=== PATIENT | male | born 1950 | race Caucasian/White ===

== ENCOUNTER 2016-04-17 12:48 | Inpatient (IN) ==
[2016-04-17] MEDS ORDERED: Ondansetron 4 MG/2 ML VIAL IVP PRN (15:39)
[2016-04-17] MEDS ORDERED: *HR* Morphine 2 MG/ML SYRINGE IVP PRN (15:39)
[2016-04-17] MEDS ORDERED: Naloxone 0.4 MG/ML INJ IVP PRN (15:39)
[2016-04-17] MEDS ORDERED: Acetaminophen 325 MG TABLET PO PRN (15:39)
[2016-04-17] MEDS ORDERED: *HR* HYDROcodone/Acet 5/325 mg TABLET PO PRN (15:39)
[2016-04-17] MEDS ORDERED: *HR* Heparin 5,000 UNIT/ML VIAL IVP ONE (15:43)
[2016-04-17] MEDS ORDERED: *HR* Heparin 5,000 UNIT/ML VIAL IVP PRN ×2 (15:43)
[2016-04-17] MEDS ORDERED: Heparin 25,000 UNIT/500 ML D5W 25,000 UNIT/500 ML MLS IVC SCH (15:45)
[2016-04-17] MEDS ORDERED: Dextrose Gel 15 GM PO PRN ×2 (15:46)
[2016-04-17] MEDS ORDERED: *HR* Dextrose 50 % in Water (Syg) 50 ML SYRINGE IVP PRN (15:46)
[2016-04-17] MEDS ORDERED: D5% in Water 1,000 ML IV PRN (15:46)
[2016-04-17] MEDS ORDERED: Nitroglycerin 0.4 MG TAB.SUBL SL SCH (15:47)
--- NOTE | 2016-04-17 16:01 | Internal Med History&Physical ---
Date of Encounter: 04/17/16 Time of Encounter: 15:54 Assessment and Plan (1) NSTEMI (non-ST elevated myocardial infarction) Current visit: Yes Status: Acute Patient with history of ACS (Patient is not sure if STEMI or NSTEMI) on April 04/2017, was at [facility], refused heart catheterization and intervention at that time. Patient now with pulmonary edema and cardiogenic shock possibly from inferior lateral WA. Received Lovenox 90 mg at referring hospital, will start on heparin drip. Sublingual nitroglycerin when necessary chest pain. Continuous ASA, Currently chest pain free, SL NTG prn chest pain Hold beta blockers and ACEI till BP improved Continue dopamine infusion. Titrate to systolic blood pressure systolic is 110. Obtain echocardiography. Continue supplemental oxygen Trend troponins, repeat BNP repeat chemistry obtain chest x-ray. Consult to cardiology. Strict intake/outpout Daily weight check The patient is agreeable to cardiac catheterization if necessary. Patient is high risk due to multiple cardiac conditions ongoing at the same time included an STEMI, pulmonary edema, cardiogenic shock, acute hypoxemic respiratory failure Patient is DNR-CC-A Plan of care discussed with patient, verbalizes understanding. (2) CHF (congestive heart failure) Current visit: Yes Status: Acute Continue IV Lasix 40 mg daily as tolerated by the blood pressure Qualifiers: Congestive heart failure type: unspecified congestive heart failure type Congestive heart failure chronicity: acute Qualified Code(s): I50.9 - Heart failure, unspecified (3) Pulmonary edema Current visit: Yes Status: Acute Management as above Qualifiers: Chronicity: acute Qualified Code(s): J81.0 - Acute pulmonary edema (4) Acute hypoxemic respiratory failure Current visit: Yes Status: Acute Continue supplemental oxygen (5) Cardiogenic shock Current visit: Yes Status: Acute Continue dopamine infusion rest of management as documented in NSTEMI (6) History of CVA (cerebrovascular accident) Current visit: Yes Status: Chronic Reciprocal right-sided facial droop and mild dysarthria At time of discharge patient will be returning to custodial facility. (7) Hypertension Current visit: Yes Status: Chronic Current hypotensive, hold medications Qualifiers: Hypertension type: essential hypertension Qualified Code(s): I10 - Essential (primary) hypertension (8) Diabetes mellitus Current visit: Yes Status: Chronic Check A1c Fingerstick before meals at bedtime Insulin Qualifiers: Diabetes mellitus type: type 2 Diabetes mellitus complication status: with unspecified complications Diabetes mellitus senior care insulin use: unspecified termite treater insulin use status Qualified Code(s): E11.8 - Type 2 diabetes mellitus with unspecified complications (9) Tobacco abuse Current visit: Yes Status: Chronic Cessation encouraged. (10) Hyperlipidemia Current visit: Yes Status: Chronic Continue statin Qualifiers: Hyperlipidemia type: unspecified Qualified Code(s): E78.5 - Hyperlipidemia , unspecified Internal Medicine - H&P: HPI Chief complaint: Shortness of breath Admitted From: Hospital to Hospital Transfer Plans for Post Hospital Care: Transfer Halfway Facility History of present illness: Mr. 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 He describes that he had episodes of cough with whitish sputum production, no hemoptysis. He deneis fever or chills, he denies sick contacts, he has been residing in SNF since his discharge from [facility] earlier in the month. At presentation at the referral hospital he was found to have severe respiratory distress with hypoxia, tachypnea, tachycardia but with normal blood pressure. however his blood pressure dropped to 77/45 after about one hour. he was started on dopamine drip. Work up revealed elevated troponins, acute pulmonary edema and elevated BNP. patient was started on dopamine drip, received Lovenox therapeutic dose, aspirin, Lasix 60 mg IV and was referred here for further management he was hypoxic on arrival was placed on BiPAP with improvement and was transferred here on 3 L of oxygen. Patient is seen at bedside and endorses History. He denies chest pain at the time of review, he reports some improvement in respiratory status. He denies abdominal or symptoms at this time Past Med Surg Social Fam HX - Past Medical History Medical history: CVA, diabetes, myocardial infarction Psychiatric history: no psych history - Past Surgical History Surgical History: cholecystectomy - Social History Smoking Status: Former smoker Packs per day: 2-3 Smokeless Tobacco Status: No Alcohol use: none Drug use: none Activity Level: Uses cane/walker Recent Out of Country Travel Within the Last 8 Weeks: No Exposure or Possible Exposure to Illness During Travel: No Internal Medicine - H&P: Meds Aspirin [Lo-Dose Aspirin EC] 81 mg PO DAILY 04/17/16 [History] Atorvastatin [Lipitor] 40 mg PO HS 04/17/16 [History] Carvedilol [Coreg] 6.25 mg PO BIDWM 04/17/16 [History] Cholecalciferol (Vitamin D3) [Dialyvite Vitamin D] 5,000 units PO DAILY [History] Clopidogrel [Plavix] 75 mg PO DAILY 04/17/16 [History] Docusate [Colace] 100 mg PO BID 04/17/16 [History] Gabapentin [Neurontin] 300 mg PO TID 04/17/16 [History] Ibuprofen [Motrin] 400 mg PO Q8HR PRN 04/17/16 [History] Lisinopril [Zestril] 5 mg PO DAILY 04/17/16 [History] Loratadine/Pseudoephedrine [Cvs Loratadine-D 24Hr Tablet] 1 each PO DAILY [History] Metformin [Glucophage] 1,000 mg PO BIDWM 04/17/16 [History] Nitroglycerin [Nitrostat] 0.4 mg SL Q5-10MIN PRN 04/17/16 [History] Sennosides/Docusate Sodium [Senna-Docusate Sodium Tablet] 1 tab PO BID 04/17/16 [History] SitaGLIPtin [Januvia] 100 mg PO DAILY 04/17/16 [History] Allergies No Known Allergies Allergy (Verified 04/17/16 15:50) All Systems PM: A 10-system review of systems was performed and is negative for pertinent findings except as documented above in the HPI. - Constitutional Constitutional: no chills, no fever(s), no night sweats - EENT Eyes: no change in vision, no discharge, no pain, no photophobia Ears: no ear discharge, no ear pain, no tinnitus Nose, mouth and throat: no dysphagia, no nasal discharge, no neck pain, no sore throat - Cardiovascular Cardiovascular ROS IM: as per HPI - Respiratory Respiratory: as per HPI - Gastrointestinal Gastrointestinal: no abdominal pain, no diarrhea, no hematemesis, no hematochezia, no melena, no nausea, no vomiting - Genitourinary Genitourinary ROS male: as per HPI - Musculoskeletal Musculoskeletal ROS IM: no numbness, no tingling - Integumentary Integumentary IM: as per HPI - Neurological Neurological ROS: as per HPI - Hematologic/Lymphatic Hematologic/Lymphatic: no easy bruising - Constitutional Vitals: Temp Pulse Resp BP Pulse Ox 98.5 F 96 18 107/63 96 04/17/16 15:12 04/17/16 15:12 04/17/16 15:12 04/17/16 15:12 04/17/16 15:12 General appearance: Present: A&O X 3, pleasant, no acute distress - Head Head exam: Present: atraumatic - Eye Eye exam: Present: PERRL, conjuntiva pink, sclera anicteric - ENT ENT exam: Present: mucous membranes dry - Neck Neck exam general surgery: Present: normal inspection - Respiratory Additional comments: Bilateral crackles at the bases - Cardiovascular Cardiovascular exam: Present: JVD, +S1, +S2, +S3 - GI/Abdominal GI/Abdominal exam: Present: normal bowel sounds, soft, no peritoneal signs. Absent: tenderness - Additional comments: Mcfadden catheter draining clear urine - Extremities Exam Extremities exam: Present: pedal edema - Neurological Exam Neurological exam: Present: alert, oriented X3, facial droop, speech deficit ( Mild dysarthria). Absent: pronater drift - Skin Skin exam: Present: dry, intact Internal Med - H&P Results - Labs Labs: CBC from referral Center reveals leukocytosis with a white blood cell count of 19,700, hemoglobin and PLT WNL Chemistry: hyponatremia- sodium 138, potassium 5.4, anion gap metabolic acidosis with anion gap 15.2, lactic acidosis with lactate of 3.4 Calcium, WNL CK-MB 3.2, troponin 0.56. CXR with pulmonary edema, rule out multifocal pneumonia. EKG with multiple artifacts and LBBB ABG pH 7.34, PCO2 59.5, platelets 173, on FiO2 of 60% on BiPAP. - EKG Data -: EKG Interpreted by Myself EKG shows normal: sinus rhythm, ST-T waves (st depression in II, II, V5, V6, Q waves in III, Flat T waves in V5 and V6) - EKG Data Prior EKG available for review: no Interpretation IM: suggestive of ischemia
[2016-04-17] MEDS ORDERED: Insulin LISPRO 300 UNITS/3 ML VIAL SQ SCH ×3 (16:30→21:00)
[2016-04-17] MEDS ORDERED: Nitroglycerin 0.4 MG TAB.SUBL SL PRN (16:53)
[2016-04-17 17:03] LABS: Basophils % 0.1 %; Eosinophils % 0.1 %; Hemoglobin 12.4 g/dL (12.9-16.9); Immature Granulocytes % 0.6 % (0-4); Lymphocytes # 0.5 K/mcL (0.6-4.6); Lymphocytes % 2.6 %; Mean Corpuscular HGB Conc 35.4 g/dL (31.6-35.5); Mean Corpuscular Volume 81.8 fL (83.0-100.0); Monocytes # 0.4 K/mcL (0.0-1.3); Neutrophils # 18.8 K/mcL (1.6-8.9); Platelet Count 258 K/mcL (140-400); Red Blood Count 4.28 M/mcL (4.19-5.50); Red Cell Distribution Width 13.7 % (11.5-14.5); Segmented Neutrophils % 94.6 %
[2016-04-17 17:04] LABS: Hematocrit 35.8 % (37.5-50.1); Hemoglobin 12.4 g/dL (12.9-16.9); Immature Platelets 5.6 % (1.1-6.1); Mean Corpuscular HGB Conc 34.6 g/dL (31.6-35.5); Mean Corpuscular Hemoglobin 28.2 pg (28.0-33.3); Mean Corpuscular Volume 81.4 fL (83.0-100.0); Mean Platelet Volume 10.9 fL (9.4-12.4); Red Blood Count 4.4 M/mcL (4.19-5.50); Red Cell Distribution Width 13.7 % (11.5-14.5)
[2016-04-17 17:09] LABS: INR 1.2; Prothrombin Time 13.2 Seconds (9.4-12.1)
[2016-04-17 17:12] LABS: Activated Partial Thrombo Time 32.6 Seconds (26.0-36.0)
[2016-04-17 17:19] LABS: BUN/Creatinine Ratio 18 (6-26); Blood Urea Nitrogen 24 mg/dL (8-26); Calcium 8.7 mg/dL (8.6-10.8); Carbon Dioxide 16 mEq/L (19-29); Chloride 97 mEq/L (98-109); Glucose 273 mg/dL (70-99); Osmolality,Calculated 278 (280-300); Potassium 5.6 mEq/L (3.5-4.5); Sodium 127 mEq/L (136-145); eGFR For African Americans > 60 (> 60); eGFR For Non-African Americans 52 (> 60)
[2016-04-17 17:22] LABS: Chol/HDL Ratio 3.3 (0-4.9); Magnesium 1.4 mg/dL (1.6-2.6)
[2016-04-17] MEDS ORDERED: Insulin Human Regular 10 UNIT in 0.9 % Sodium Chloride 10 ML IV ONE (18:01)
[2016-04-17] MEDS ORDERED: Calcium Gluconate 1,000 MG in D5% in Water 100 ML IVPB ONE (18:01)
--- NOTE | 2016-04-17 18:14 | Event Note ---
Date of Encounter: 04/17/16 Time of Encounter: 18:12 Patient with NSTEMI, Pulmonary edema, Acute hypoxemic respiratory failure, cardiogenic shock Troponin from referral center 0.526, rpt troponin here 9.[address] depression and T wave changes I spoke with cassandra consultant electronic funds transfer coordinator about this result, he recommends to continue medical therapy fo rnow Cardiology will follow.
[2016-04-17 18:16] LABS: Hemoglobin A1C 7.4 %
--- NOTE | 2016-04-17 19:34 | Pre-Sedation Evaluation ---
Pre-sedation evaluation - Pre-sedation checklist Date of procedure: 04/17/16 Procedure: Left heart catheter and possible intervention Recent Vitals: Last Vital Signs Temp 98.2 F 04/17/16 16:32 Pulse 100 04/17/16 18:00 Resp 17 04/17/16 16:32 BP 108/61 04/17/16 18:00 Pulse Ox 97 04/17/16 16:32 H&P (including ROS) documented in medical record: Yes Previous reaction to sedatives/anesthetics: Unknown Dietary Status: No solid food in preceding 4 hrs and no liquid in preceding 2 hrs Airway Assessment: Patient can open mouth completely, TMJ function normal Dentition: No loose teeth or bridges, full dentition Possible difficult airway: No ASA Classification *see protocol: CLASS IV-Severe systemic disease/constant threat to pt's life Plan of Care: Pt appropriate candidate for procedure/moderate/conscious sedation , Risks/benefits of procedure/sedation discussed w/ patient/family, If not NPO; Risk of intake outweiged by necessity to perform procedure
[2016-04-17] MEDS ORDERED: 0.9 % Sodium Chloride 1,000 ML ONE (19:46)
[2016-04-17] MEDS ORDERED: Heparin 1,000 UNITS/500 mL NS 500 ML ONE (20:03)
[2016-04-17] MEDS ORDERED: Heparin 25,000 UNIT/500 ML D5W 25,000 UNIT/500 ML MLS IVC ONE (20:28)
[2016-04-17] MEDS ORDERED: 0.9 % Sodium Chloride 1,000 ML IVC SCH (20:30)
--- NOTE | 2016-04-17 20:42 | Invasive Diagnostic Lab ---
Name: Reece Solis Date of Study: 04/17/2016 Date: 1950 Ht: 168.0 cm /66.1 in Medical Record#: [id number] Age: 65 Wt: 90. kg / 198.42 lb Account/Order#: [id number] Gender: Male BSA: 2. Order #: [id number] Fluoro Dose: 298 mGy BMI: 31.89 Procedure Physician: Darrin Hamilton MD Referring MD: Referring MD: Procedures Performed: LEFT HEART CATH Indications: Non-Stemi Impressions: There is severe three vessel coronary artery disease. There is moderate to severe LV Dysfunction EF 25% Recommendations: Optimal medical therapy of patient's disease. Aggressive risk factor modification. Suggest patient have Elective coronary artery bypass surgery. History/Risk Factors: ACS CHF pulm edema resp failure cardiogenic shock Diabetes Hypertension Dyslipidemia Current/Recent Smoker Chronic Lung Disease Prior SD Procedure Access obtained in the right Femoral artery by percutaneous puncture An IABP balloon was inserted over J-tipped guide wire and positioned in the descending aorta below the orifice of the left subclavian artery. Intra-aortic conterpulsation was initiated. The IABP sheath was sutured to skin. Complications: None, None Contrast: Isovue 38ml LV Ventriculography Ejection Method: LV Gram Ejection Fraction: 25% Wall Motion: LAMAR Anterobasal Normal Anterolateral Dyskinesis Apical: Normal Inferoapical Akinesis Inferobasal Moderate Hypokinesis Coronary Dominance: right Lesion Findings/Interventions * Left Main Coronary Artery There is a 95% stenosis in the LMCA. * Left Anterior Descending There is a 90% stenosis in the Proximal LAD. There is a 90% stenosis in the Mid LAD. * Circumflex There is a 99% stenosis in the Ostial Circumflex. * Right Coronary Artery There is a 90% stenosis in the Proximal RCA. There is a 100% stenosis in the Mid RCA. The lesion has collaterals which feed from left to right. Updated by RT Raymundo (R) on 04/17/2016 8:34:24 PM Darrin Hamilton MD electronically signed on 04/17/2016 8:35:33 PM with status of Final
[2016-04-17] MEDS ORDERED: Amiodarone Premix 360 MG/200 ML BAG IVC ONE ×2 (20:45→21:11)
[2016-04-17] MEDS ORDERED: Amiodarone Premix 150 MG/100 ML BAG IVPB ONE ×2 (20:45→21:09)
--- NOTE | 2016-04-17 20:48 | Invasive Diagnostic Lab Proc ---
Name: Reece Solis Date of Study: 04/17/2016 Date: 1950 Ht: 66.1in Medical Record#: [id number] Age: 65 Wt: 198.42lb Gender: Male BSA: 2. Order #: [id number] BMI: 31.89 Physicians Procedure Physician: Darrin Hamilton MD Referring MD: Referring MD: Staff Name Position Time In [place] RT Monitor 07:56 PM Tiffanie Collinsa RT (R) Scrub 07:56 PM Abdiel Arellano RN Legal Support Manager 07:56 PM Indications Indication Non-Stemi Procedures Performed Procedure L HRT ARTERY/VENTRICLE ANGIO IABP INSERTION, PERCUTANEOUS Pre-Procedure Checklist Informed consent is complete signed and on chart. H\\T\\P is on chart. ID band is on and ID verified with patient. Patient NPO for procedure The procedure was described for the patient and questions were answered. Blood Pressure: 120/79 ECG is on chart. Rhythm: Sinus Tachycardia Plan of Care Patient will tolerate the procedure without complications. Adequate level of comfort will be maintained. Hemodynamics will remain stable Patient will recover from procedure without complications. Respiratory function will be maintained. Cardiac rhythm will remain stable. Patient temperature will be maintained. Patient and/or family have verbalized understanding of the procedure. Patient Education Chief Complaint/Reason for Test: Cardiac Cath Developmental Category: Geriatric (65+ years) Developmentally Appropriate for Age: Yes Learning Barriers: None Education Needs: Procedure Education Method: Verbal Information Taught: Cardiac Cath Educational Evaluation: Able to repeat information Intravenous Access Time IV Size Location DC'd Fluid/Drip Rate Units RN 20g 1 1/4" Patent On Arrival Lt Antecubital Dopamine 2.5 mcg/kg/min Abdiel Arellano RN 20g 1 1/4" Patent On Arrival Lt Antecubital Heparin 20 ml/hr Abdiel Arellano RN Allergies No Known Allergies Vital Signs Time BP (mmHg) HR (bpm) O2 Sat. RR (bpm) LOC 07:51 PM 108 / 61 100 97 % 17 5 = Fully awake and oriented or at pre-proc level 07:57 PM / % 5 = Fully awake and oriented or at pre-proc level 07:57 PM / % 4 = Oriented but drowsy 08:12 PM / % 5 = Fully awake and oriented or at pre-proc level 07:50 PM 120 / 79 117 99 % 24 07:55 PM 118 / 72 108 98 % 22 08:00 PM 116 / 67 100 98 % 18 08:05 PM 107 / 61 97 99 % 19 08:10 PM 101 / 61 96 97 % 19 08:12 PM 104 / 59 100 97 % 22 08:15 PM 115 / 71 101 99 % 20 08:20 PM 119 / 62 100 99 % 22 08:25 PM 132 / 80 98 97 % 18 08:30 PM 127 / 91 96 100 % 22 Procedural Medications Time Medication Dose Units Method Given By 07:56 PM Oxygen 2 L/min nasal cannula Abdiel Arellano RN 07:57 PM Versed 1 mg Intravenous Abdiel Arellano RN 07:57 PM Fentanyl 25 mcg Intravenous Abdiel Arellano RN 07:57 PM Lidocaine 2% 19 ml Subcutaneous Darrin Hamilton MD 08:17 PM Lidocaine 2% 4 ml Subcutaneous Darrin Hamilton MD ASA Classification: CLASS IV- Severe systemic that is constant threat to patient's life Dano Score Preprocedure Postprocedure Activity 2- Moves 4 extremities sustained head lift Activity 2- Moves 4 extremities sustained head lift Circulation 2- SBP +/= 20 points of pre-anesthetic level Circulation 2- SBP +/= 20 points of pre-anesthetic level Consciousness 2- Awake and alert oriented x 3 Consciousness 2- Awake and alert oriented x 3 O2 Saturation 2- Able to maintain O2 satruation of 92% on room air O2 Saturation 2- Able to maintain O2 satruation of 92% on room air Respiratory 2- Able to deep breathe and cough well Respiratory 2- Able to deep breathe and cough well Total Score 10 Total Score 10 Contrast Agent: Isovue Diagnostic Contrast: 38 ml Total Contrast: 38 ml Fluoro Dose: 298 mGy Procedure Log Time Note Enter By 07:49 PM Case Start 07:49 PM CathStat 07:49 PM Vitals capture started with the following parameters, Patient=Adult, Interval=5 min, Initial Rcezmdry=944 mmHg, Deflation Rate=5 mmHg, Cuff placed on Right Arm 07:50 PM ER=261 bpm, BTKF=807/79 mmhg, SpO2=99 %, Resp=24 B/min 07:55 PM LI=640 bpm, ZJJH=951/72 mmhg, SpO2=98 %, Resp=22 B/min 07:55 PM Pressure channel 1 zeroed. 07:56 PM Pt arrived to chemistry laboratory technician 1 at 19:56 [email or web address] 07:56 PM [place] RT Position: Monitor Time in: :: PM Sloane Collins RT (R) Position: Scrub Time in: : PM Abdiel Arellano RN Position: Legal Support Manager Time in: :56 : PM Patient charges- Angio tray pack, Navilyst 3mm J, Pulse Oximetry and ACIST tubing and transducer PM IV Supplies used: J loop Angio Cath. : PM Case Delayed No PM Hair removed from procedure site in procedure lab using clippers. Bilateral groin prepped with Chloraprep by [place] RT then patient draped. Skin intact. : PM Physician arrived :: PM ASA Class CLASS IV- Severe systemic that is constant threat to patient's life PM Meet and greet completed : PM Sign in performed according to hospital policy. PM Procedure start : PM Time: :56 Oxygen on at 2 L/min per nasal cannula by Abdiel Arellano RN PM Time: :57 Versed 1 mg Intravenous Given by Abdiel Arellano RN PM Time: :57 Fentanyl 25 mcg Intravenous Given by Abdiel Arellano RN PM Time: 19:57 Patient comfortable and pain free: Yes PM Time: :LOC: 5 = Fully awake and oriented or at pre-proc level PM Clinical Presentation: Non-STEMI PM Time out performed according to hospital policy PM Time: :57 19 ml Lidocaine 2% to right groin Subcutaneous Given by Darrin Hamilton MD PM Access obtained by percutaneous puncture. 5Fr 10cm Terumo [place] sheath placed in right Femoral artery. [id number] : PM 5Fr FL 4 catheter inserted over the wire [facility] PM Recorded Pressure: Ao, VR=578, Condition=Condition 1 (Aorta) Ao 89/63/75 07:58 PM wire removed [email or web address] 07:58 PM LCA angiography performed in multiple views. [email or web address] 07:59 PM Catheter removed kkallner 07:59 PM 5Fr FR 4 catheter inserted over the wire [facility] kkallner 08:00 PM KI=969 bpm, UVBV=789/67 mmhg, SpO2=98 %, Resp=18 B/min 08:00 PM Lesion found in LMCA. Pre Stenosis: 95 Pre ROWDY Flow: [email or web address] 08:00 PM Lesion found in Proximal LAD. Pre Stenosis: 90 Pre ROWDY Flow: [email or web address] 08:00 PM Lesion found in Mid LAD. Pre Stenosis: 90 Pre ROWDY Flow: [email or web address] 08:00 PM Lesion found in Proximal Circumflex. Pre Stenosis: 99 Pre ROWDY Flow: [email or web address] 08:01 PM Lesion found in Proximal RCA. Pre Stenosis: 90 Pre ROWDY Flow: kkallner 08:02 PM RCA angiography performed in multiple views. [email or web address] 08:02 PM Catheter removed kkallner 08:02 PM 5Fr Pigtail catheter inserted over the wire [facility] kkallner 08:02 PM Catheter selectively placed in left ventricle kkallner 08:02 PM Lesion found in Mid RCA. Pre Stenosis: 100 Pre ROWDY Flow: kkallner 08:03 PM Left Main Coronary Artery with 95% stenosis kkallner 08:03 PM Proximal Left Anterior Descending Coronary Artery with 90% stenosis. If graft is supplying this territory, % stenosis. [email or web address] 08:03 PM Mid/Distal Left Anterior Descending Coronary Artery and diagonal branches with 90% stenosis. If graft is supplying this area, % stenosis kkallner 08:03 PM Circumflex, Obtuse Marginal, Left Posterior Descending, and Left Posterolateral Coronary Arteries with 99 % stenosis. If graft is supplying this area, % stenosis kkallner 08:03 PM Right Coronary, Right Posterior Descending Arteries with Right Posterolateral and Acute Marginal branches with 100 % stenosis. If graft is supplying this area, % stenosis kkallner 08:03 PM Recorded Pressure: LV, HR=99, Condition=Condition 1 (Left Ventricle) LV 100/12/21 08:03 PM Bolus angiogram of left Ventricle complete: 10 ml/sec for a total of 20 mls kkallner 08:04 PM Recorded Pressure: LV, Ao, HR=98, Condition=Condition 1 (Left Ventricle) LV 73/29/32, (Aorta) Ao 80/61/70 08:[address] surgeon paged 08:05 PM HR=97 bpm, HKQQ=271/61 mmhg, SpO2=99.0 %, Resp=19 B/min 08:06 PM cathether removed 08:08 PM sheath exchanged for balloon pump sheath 08:09 PM rag baler paged and notified 08:10 PM HR=96 bpm, EYIF=404/61 mmhg, SpO2=97.0 %, Resp=19 B/min 08:[address] Gonzalez responded 08:11 PM 8 Fr sheath inserted 08:11 PM NIBP STAT measurement started. 08:12 PM QH=574 bpm, NLBV=109/59 mmhg, SpO2=97 %, Resp=22 B/min 08:12 PM Time: 19:57LOC: 4 = Oriented but drowsy 08:12 PM Time: 19:57 Patient comfortable and pain free: Yes 08:13 PM balloon pump wire inserted into 8 fr sheath 08:14 PM 8 Fr Maquet Balloon Pump IABP catheter inserted into right Femoral artery, 50 cc, *ACC* catheter inserted 1 08:14 PM wire removed 08:15 PM QQ=271 bpm, BPPY=273/71 mmhg, SpO2=99.0 %, Resp=20 B/min, Comment=tachy 08:17 PM Time: 20:17 4 ml Lidocaine 2% to right groin Subcutaneous Given by Darrin Hamilton MD 08:19 PM IABP sheath sutured to skin 08:19 PM IABP Settings: 1:1 ratio ECG trigger 08:20 PM UV=369 bpm, XPJY=786/62 mmhg, SpO2=99.0 %, Resp=22 B/min 08:23 PM Procedure completed at 20:23 08:25 PM Sign out completed: Radiation Dose 297.55 mGy Fluoro Time: 2.8 Isovue 370 - 200ml contrast 38 ml given by Darrin Hamilton MD. Complications: NoneCardiac Rehab Consult needed: YesConfirmed administered medications: Yes 08:25 PM HR=98 bpm, JPVJ=535/80 mmhg, SpO2=97.0 %, Resp=18 B/min 08:27 PM Time: 20:12 Patient comfortable and pain free: Yes kkner 08:27 PM Time: 20:12LOC: 5 = Fully awake and oriented or at pre-proc level [email or web address] 08:30 PM HR=96 bpm, XBIM=096/91 mmhg, TgB0=413 %, Resp=22 B/min 08:30 PM Isovue 370 - 200ml,1 Bottle(s) used. kkner 08:30 PM Sheath left in place to be pulled on floor/holding area kk 08:31 PM Post ECG Sinus Tachycardia kkallner 08:31 PM Post Blood Pressure 127/91 [email or web address] 08:31 PM 20:31 Post Pulses Bilateral DP \\T\\ PT 1+ kkallner 08:31 PM Information taught Cardiac Cath kk 08:31 PM Education needs Procedure, Plan of Care, and Responsibilities of Patient in Care kk 08:31 PM Learning barriers :None kk 08:31 PM Education Methods Verbal kkner 08:31 PM Education evaluation Able to repeat information kk 08:31 PM Site status No bleeding/hematoma - Rt Groin as reported by Sloane Collins RT (R) at 20:31 [email or web address] 08:31 PM Opsite applied kkallner 08:31 PM Plavix, Effient or Brilinta given No kkallner 08:31 PM Delay to floor No kkallner 08:31 PM Patient out of room: 20:31 kkallner 08:32 PM pt has no family at this time kkallner 08:32 PM Complications: None kkner 08:32 PM Fluoro Time: 2.8 kkallner 08:32 PM Isovue 370 - 200ml contrast 38 ml given by Darrin Hamilton MD. [email or web address] 08:32 PM Radiation Dose 297.55 mGy kkallner 08:35 PM IABP Augmented pressure, mean: 140 kkallner 08:41 PM Report given to STRATEGY LEAD Pt taken to ICU Room #1. 20:41 [email or web address] 08:41 PM [facility] spoke with Dr Hamilton and accepted patient [email or web address] Complications Complication None None Hemodynamics Pressures Site Systolic/A Wave Diastolic/V Wave Mean AO 89 63 75 LV 100 12 21 LV 73 29 32 AO 80 61 70 Post Procedure Information Blood Pressure: 127/91 mmHg Rhythm: Sinus Tachycardia Post procedural instructions were given Surgery consult for CABG Site Checks Time Location Status Staff Sheath In? Note 08:31 PM Rt Groin No bleeding/hematoma Sloane Collins RT (R) Pulses Time Site Pre-Procedure Post-Procedure Note 04/17/2016 7:50:00 PM Bilateral DP \\T\\ PT 1+ 04/17/2016 7:50:00 PM Bilateral radial 1+ 8:31:00 PM Bilateral DP \\T\\ PT 1+ Updated by [place] RT (R) on 04/17/2016 8:42:42 PM electronically signed on 04/17/2016 8:44:17 PM with status of Final
[2016-04-17] MEDS ORDERED: Sennosides/Docusate Sodium TABLET PO SCH (21:00)
[2016-04-17] MEDS ORDERED: Insulin DETEMIR 100 UNIT/ML X5UNITS SQ SCH (21:00)
[2016-04-17] MEDS ORDERED: Gabapentin 300 MG CAPSULE PO SCH (21:00)
[2016-04-17] MEDS ORDERED: Amiodarone Premix 360 MG/200 ML BAG IVC SCH (21:15)
[2016-04-17] MEDS ORDERED: *HR* Midazolam HCl 5 MG/5 ML VIAL IVP ONE (21:19)
[2016-04-17] MEDS ORDERED: *HR* FentaNYL (PF) 250 MCG/5 ML VIAL ONE (21:19)
[2016-04-17 23:48] VITALS: BP 131/59
--- NOTE | 2016-04-18 07:22 | ECHO - Doppler Report ---
Echocardiogram Name: Reece Solis Date of Study: 04/17/2016 Date: 1950 Ht: 66.0 in Medical Record#: [id number] Age: 65 Wt: 200.0 lb Gender: Male BSA: 2 Order #: [id number] Location: [facility] Room #: 2N9 Reading Physician: Boni Jha MD, [facility] Block Sorter: [facility] Ordering Physician: Hunter Thakkar MD Primary Physician: Moon Navarrete CNP Indications: Pulmonary edema, NSTEMI Impressions: Technically sub-optimal due to poor echocardiographic windows. Severe left ventricular systolic dysfunction, estimated LVEF 25-30%. There appears to be global LV dysfunction with regional variations, however, most myocardial segments were not well visualized. Normal right ventricular size and function. Cardiac valves were not well visualized. No evidence of significant valvular dysfunction. Unable to estimate RVSP due to lack of TR jet. Left Ventricular Wall Motion: Rest Echo Findings The apex, apical inferior, mid inferior, basal inferior, apical anterior, mid anterior, basal anterior, apical septal, mid inferior septal, basal inferior septal, apical lateral, mid anterior lateral, basal anterior lateral, mid anterior septal, mid inferior lateral, basal anterior septal and basal inferior lateral beal were hypokinetic. Findings: Study Quality * Technically sub-optimal due to poor echocardiographic windows. ECG Findings * Normal sinus rhythm. Left Ventricle * Severe left ventricular systolic dysfunction, estimated LVEF 25-30%. There appears to be global LV dysfunction with regional variations, however, most myocardial segments were not well visualized. * Normal LV chamber size and wall thickness. * Indeterminate diastolic function. Right Ventricle * Normal right ventricular size and function. Left Atrium * Normal left atrial size. Right Atrium * Right atrium is not well visualized. Aorta * Normally sized aortic root. Pericardium * There is no pericardial effusion present. IVC * The IVC is not dilated. Aortic Valve * Aortic valve not well visualized. * Normal aortic valve function. Mitral Valve * Normal mitral valve structure. * Normal mitral valve function. Tricuspid Valve * Tricuspid valve not well visualized. * Normal tricuspid valve function. * Unable to estimate RVSP due to lack of TR jet. Pulmonic Valve * Pulmonic valve not well visualized. * Normal pulmonic valve function. History Diabetes Myocardial Infarction Measurements: BP: 98/ 62 2D Normal Values RVIDd: 2.08 cm IVSd: .78 cm 0.6 - 1.0 cm LVIDd: 5.09 cm 3.7 - 5.6 cm LVPWd: 1.04 cm 0.6 - 1.1 cm LVIDs: 4.35 cm 1.5 - 3.6 cm AO: 2.70 cm < 4.0 cm %FS: 14.50 cm >25 % LA volume: 38 Updated by Boni Jha MD, [facility] on 04/18/2016 7:15:16 AM electronically signed on 04/18/2016 7:17:10 AM with status of Final Wall Motion Jett: 1=Normal, 2=Hypokinesis, 3=Akinesis, 4=Dyskinesis, 5=Aneurysmal, 6=Hyperkinetic, X=Not Visualized (Blank)=Missing
[2016-04-18] MEDS ORDERED: Aspirin Enteric Coated 81 MG Tablet PO SCH (09:00)
[2016-04-18] MEDS ORDERED: Cholecalciferol (D-3) 1,000 UNIT TABLET PO SCH (09:00)
--- NOTE | 2016-04-18 16:29 | Electrocardiograph Report ---
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
--- NOTE | 2016-04-23 17:55 | Transfer Summary ---
Date of Encounter: 04/17/16 Time of Encounter: 19:00 Transfer Discharge Sum: Diag - Discharge Diagnosis (1) NSTEMI (non-ST elevated myocardial infarction) Status: Acute (2) CHF (congestive heart failure) Status: Acute (3) Pulmonary edema Status: Acute (4) Acute hypoxemic respiratory failure Status: Acute (5) Cardiogenic shock Status: Acute (6) History of CVA (cerebrovascular accident) Status: Chronic (7) Hypertension Status: Chronic (8) Diabetes mellitus Status: Chronic (9) Tobacco abuse Status: Chronic (10) Hyperlipidemia Status: Chronic Transfer Discharge Sum: Med - Medications Active and Home Medications: Home Medications Aspirin [Lo-Dose Aspirin EC] 81 mg PO DAILY 04/17/16 [History Confirmed 04/17/16 ] Atorvastatin [Lipitor] 40 mg PO HS 04/17/16 [History Confirmed 04/17/16] Carvedilol [Coreg] 6.25 mg PO BIDWM 04/17/16 [History Confirmed 04/17/16] Cholecalciferol (Vitamin D3) [Dialyvite Vitamin D] 5,000 units PO DAILY [History Confirmed 04/17/16] Clopidogrel [Plavix] 75 mg PO DAILY 04/17/16 [History Confirmed 04/17/16] Docusate [Colace] 100 mg PO BID 04/17/16 [History Confirmed 04/17/16] Gabapentin [Neurontin] 300 mg PO TID 04/17/16 [History Confirmed 04/17/16] Ibuprofen [Motrin] 400 mg PO Q8HR PRN 04/17/16 [History Confirmed 04/17/16] Lisinopril [Zestril] 5 mg PO DAILY 04/17/16 [History Confirmed 04/17/16] Loratadine/Pseudoephedrine [Cvs Loratadine-D 24Hr Tablet] 1 tab PO DAILY PRN [History Confirmed 04/17/16] Metformin [Glucophage] 1,000 mg PO BIDWM 04/17/16 [History Confirmed 04/17/16] Nitroglycerin [Nitrostat] 0.4 mg SL Q5-10MIN PRN 04/17/16 [History Confirmed ] Sennosides/Docusate Sodium [Senna-Docusate Sodium Tablet] 1 tab PO BID 04/17/16 [History Confirmed 04/17/16] SitaGLIPtin [Januvia] 100 mg PO DAILY 04/17/16 [History Confirmed 04/17/16] Transfer Discharge Sum: Data Procedures and tests throughout hospitalization: Pending Orders 04/17/16 15:39 Admit as Inpatient Routine Glucose, blood poc measurement [RC] ACHS 04/17/16 15:40 Bed rest [RC] .CONT 04/17/16 15:41 Cardiac Monitoring Med/Surg [RC] .CONT Continuous pulse oximetry [RC] CONT Measure intake and output [RC] QSHIFT Measure weight [RC] DAILY Oxygen via nasal cannula Nasal Cannula 2 lpm 04/17/16 15:43 Assess for bleeding [RC] .PER UNIT PROTOCOL Communication order [RC] .PRN Communication order [RC] CONT Notify provider [RC] .PRN 04/17/16 15:45 Mcfadden to gravity PROTOCOL 04/17/16 15:46 Hypoglycemia Treatment Orders [RC] .once Notify provider [RC] once 04/17/16 15:49 Consult to Dining Room Hostess [CONS] Routine 04/17/16 16:27 Consult to Cardiology [CONS] Routine 04/17/16 18:50 Resuscitation Status: Active [RES] Routine 04/17/16 20:24 Communication order [RC] ONCE Sheath management 1 [RC] ONCE Consult to Cardiac Rehabilitation-Phase1 [CONS] Routine Advance Diet as Tolerated Routine - Impressions ITS Impressions Chest X-Ray 04/17/16 15:42 IMPRESSION: Bilateral pulmonary infiltrates. Recommend follow-up imaging to confirm resolution D/ / Paul Teague MD / Pual Teague MD Interpreting Provider: Paul Teague MD Transfer Discharge Sum: Prov Date of admission: 04/17/16 15:50 Primary care physician: Moon Navarrete CNP Consults: 04/17/16 15:49 Consult to Dining Room Hostess [CONS] Routine Reason for SW Consult: Discharge planning. Patient from [facility]. 04/17/16 16:27 Consult to Cardiology [CONS] Routine Comment: Consulting Provider: Cardiology [facility] Reason for Consult: Acute pulmonary edema, NSTEMI Call Completed: No 01/19/17 20:24 Consult to Cardiac Rehabilitation-Phase1 [CONS] Routine Comment: Reason for Consult: post op cath Call Completed: Yes Transfer Discharge Sum: A/P - Plan Disposition: Transfer Critical Access Hosp Transfer Discharge Sum: Hosp Hospital course: Mr. Solis is a 65 year old male Patient with NSTEMI and CHF with cardiogenic shock Patient was transferred to [facility] from ICU - Time Spent with Patient Total time spent providing and/or coordinating transfer services:
== END 2016-04-18 00:24 | disposition short-term general hospital (02) | DRG 190 ==
LOC: 2NNU → ICNU 20:54
PROVIDERS: ADMIT Internal Medicine; ATTEND Internal Medicine